=== PATIENT | male | born 1990 | race Caucasian/White ===

== ENCOUNTER → 2016-09-06 | Outpatient (CLI) | payer OTHER ==
[2016-09-07 04:29] LABS: VITAMIN D 25-HYDROXY 22.8 NG/ML (30-100)
== END ==
LOC: MOB LAB 13:34
PROVIDERS: ATTEND Physician Assistant Medical
DX: R53.83 Other fatigue (principal); G47.9 Sleep disorder, unspecified; F17.210 Nicotine dependence, cigarettes, uncomplicated
CPT/HCPCS: 36415; 82306; 82607; 84443

== ENCOUNTER → 2016-10-03 | Outpatient (CLI) | payer OTHER ==
--- NOTE | 2016-10-03 15:28 | DI ---
PA /LATERAL CHEST X-RAY, 10/03/2016 11:07 AM : Clinical History: Asthma Previous Exam: May 05, 2013 There is no acute soft tissue or bony abnormality. Heart size is normal. Lungs are clear. Mediastinal structures are normal. There are no pulmonary nodules. IMPRESSION: Normal chest x-ray.
== END ==
LOC: MOB LAB 11:09
DX: J45.909 Unspecified asthma, uncomplicated (principal); F17.200 Nicotine dependence, unspecified, uncomplicated
CPT/HCPCS: 71020